=== PATIENT | female | born 1960 | race Caucasian/White ===

== ENCOUNTER 2016-09-03 04:52 | Inpatient (IN) | payer BC ==
[~2016-09-03] VITALS: Ht 160 cm; Wt 91.1 kg
--- NOTE | ~2016-09-03 | ER ---
[facility] AGE: 55 Y [address] ROOM: [place] [address] LOCATION: ED ADMIT DATE: 09/03/2016 ER/Outpatient Report DISCHARGE DATE: FAMILY PHYSICIAN: Hesham Aguirre MD ATTENDING PHYSICIAN: Michael Vega Time of Arrival: Admission date and time documented on the medical record. Time of Evaluation: I saw the patient at 0505 hours. CHIEF COMPLAINT: Left arm pain with cyanosis of the fingertips of the left hand. HISTORY OF PRESENT ILLNESS: The patient is a 55-year-old female, who has had left arm pain since about 1800 hours last night, worse with movement. Her pain is about mid left upper arm down to the fingertips. She was sitting and eating supper when this started. She had no fall or trauma. She has had no previous similar pain or problems with this left arm. No recent cough, colds, flus, fever, chills, or sweats. No history of any vascular problems other than a deep vein thrombosis in her leg about 10 or 11 years ago. She is on no anticoagulants. There is no history of hypercoagulable state. No lightheadedness, dizziness, syncope or near syncope. No headache or eyes, ears, nose, throat, neck, or spine pain. No chest pain or shortness of breath. No abdominal pain, nausea, vomiting, diarrhea, or urinary complaints. No history of neuro changes or psych issues. Does have insulin-dependent diabetes mellitus. HOME MEDICATIONS: See attached medication list. ALLERGIES: NONE. SOCIAL HISTORY: The patient is a smoker, smokes about a pack a week. Does drink alcohol 1 drink daily. SIGNIFICANT PAST MEDICAL HISTORY: Tobacco abuse; insulin-dependent diabetes mellitus, type 2; hypertension; deep vein thrombosis, leg; and cellulitis, leg. OPERATIONS: Knee arthroscopy. REVIEW OF SYSTEMS: All systems reviewed by me are negative with the exception of those discussed PATIENT'S NAME: JIMBO JOHN [facility] AGE: 55 Y [address] ROOM: [place] [address] LOCATION: ED ADMIT DATE: 09/03/2016 ER/Outpatient Report DISCHARGE DATE: FAMILY PHYSICIAN: Hesham Aguirre MD ATTENDING PHYSICIAN: Michael Vega in the history of present illness. PHYSICAL EXAMINATION: VITAL SIGNS: Temperature 96.9, tympanic; pulse 70; blood pressure 224/94; and O2 saturation on room air is 95%. HEAD: Normocephalic. EYES, EARS, NOSE, AND THROAT: Clear. NECK: No nuchal rigidity. No thyromegaly or cervical adenopathy. No carotid bruits. LUNGS: Clear. Good air flow. No rales, rhonchi, or wheezes. HEART: Regular. Pulses palpable. ABDOMEN: Soft, nondistended, nontender. Good bowel tones. No organomegaly or abnormal mass palpable. EXTREMITIES: No swelling of the left arm, upper-lower arm and fingers. She has some cyanosis and duskiness to the fingers, especially the 3rd, 4th, and 5th fingers. Capillary refill is a little bit delayed in the fingers compared to the right hand. She has tenderness with touch and tenderness with movement. She has pulses in the fingers as well as the wrist and antecubital fossa. The radial pulse is not quite as strong in the left as in the right arm. No abrasions, contusions, swellings, or open wounds. NEUROVASCULAR: Appears to be intact. She has no sensory deficit. Does have a little bit of pins and needles feeling in her left hand. EMERGENCY DEPARTMENT COURSE: Did order CBC, CMS, sedimentation rate, CRP, lactate, pro-time, and PTT. All blood study results are pending at this time. Did order a CTA of the left arm, which is pending. Started the patient on IV normal saline, fluids. Gave her fentanyl for pain. IMPRESSION: Left arm pain with duskiness of the fingers, decreased capillary refill, etiology uncertain. Suspect that she has some type of vascular problem, most likely arterial. She may have thrown a clot. I did discuss this patient with Dr. Cash, vascular surgeon. He did recommend a CTA of the left arm. Awaiting results on this. Transferred the patient's care over to Dr. Hendricks at shift change. I asked Dr. Hendricks to follow up with the laboratory and x-ray study results, final diagnosis, and treatment plan. MD ANGELO MENDEZ/modl PATIENT'S NAME: JIMBO [facility] AGE: 55 Y [address] ROOM: [place] [address] LOCATION: [facility] ADMIT DATE: 09/03/2016 ER/Outpatient Report DISCHARGE DATE: FAMILY PHYSICIAN: Hesham Aguirre MD ATTENDING PHYSICIAN: Michael Vega /[id number] d: 09/03/16629 t: 09/03/16 1813, OUTPATIENT REPORT
--- NOTE | ~2016-09-03 | HP ---
PATIENT'S NAME: EDILIA JOHN [facility] AGE: 55 Y [address] ROOM: [id number] [place], [place] [address] LOCATION: GPCU ADMIT DATE: 09/03/2016 History & Physical DISCHARGE DATE: FAMILY PHYSICIAN: JOE DANIEL MD ATTENDING PHYSICIAN: JOE DANIEL DATE OF SERVICE: CHIEF COMPLAINT: Pain, palmar side, left 5th finger, distal aspect. HISTORY OF PRESENT ILLNESS: Edilia is a 55-year-old, , white female, well known to me in the outpatient arena, who presented to the emergency room with pain in her left 5th finger on the palmar side at the distal aspect of the finger. I was called by the emergency room physician to be the admitting physician so we can get her admitted and figure out what is wrong with her hand. I have asked for cardiac consultation with Dr. Roddy Burden and Dr. Celso Cash who will see her as a vascular surgeon. When I saw her at 1:00 p.m., she is resting quietly in bed on 09/03/2016. She has a purple color and hue to the palmar surface of the tip of her left 5th finger. She has a strong radial and ulnar pulses in the arm that is affected. This area has been demarcated by the nurses with a pen. When I looked at her, she is resting quietly complaining of pain in her finger but no other aches and pains. No chest pain. No palpitations. No shortness of breath. She is known to have hypertension, known to be a smoker, known to have a history of MRSA with infection of her leg in the past, and known to be a type 2 diabetic, on insulin. At this point, we will leave her on heparin. Dr. Burden has seen the patient and an echocardiogram has been ordered for tomorrow and Dr. Cash's PA has seen the patient, and Dr. Cash will see the patient tomorrow and give his recommendations. I see her A1c is 9.8, her blood sugar of 196 random, her potassium is 3.3, otherwise her lab and CBC unremarkable. Her CTA of the involved upper extremity shows no proximal vessel stenosis. See full report. MEDICATIONS: 1. Metformin 500 mg b.i.d. 2. [place] 5/325 as needed. 3. Lisinopril HCT 01/04.5, one daily. 4. Insulin Humalog sliding scale. 5. Insulin Tresiba 50 units daily. [facility] 55 Y [address] ROOM: [place] [address] LOCATION: GPCU ADMIT DATE: 09/03/2016 History & Physical DISCHARGE DATE: FAMILY PHYSICIAN: JOE DANIEL MD ATTENDING PHYSICIAN: JOE DANIEL ALLERGIES: NO KNOWN DRUG ALLERGIES. SOCIAL HISTORY: Does smoke. FAMILY HISTORY: Noncontributory. IMMUNIZATIONS: Up to date for age. REVIEW OF SYSTEMS: HEENT: She has had no change in vision. No hearing problems. No sore throat. ENDOCRINE: She is a type 2 diabetic. Not hypothyroid. LUNGS: History of COPD and smoking detention. HEART: History of hypertension. No previous GA. No history of atrial fibrillation. GASTROINTESTINAL: No recent change in bowel habits. No melena. No dysphagia. GENITOURINARY: No dysuria or frequency. EXTREMITIES: As mentioned. No history of Raynaud's phenomenon in the past. SKIN: As mentioned. She does have a history of MRSA infection in left leg about a year ago that resolved. NEUROLOGIC: No history of seizures, syncope, or stroke. PHYSICAL EXAMINATION: VITAL SIGNS: Per nurse's notes. Blood pressure is 186/90, pulse is 80 and regular, respirations 12. HEENT: Shows a smoker's facies. Her eyes are clear. Nose is clear. TMs not visualized. Posterior pharynx is clear. Mucous membranes are moist. NECK: Unremarkable. Thyroid not enlarged. No adenopathy. I did not listen for carotid bruit. HEART: Shows regular rhythm. No murmur. BREASTS: Not done. LUNGS: Clear to auscultation bilaterally. ABDOMEN: Soft. PELVIC, RECTAL, and BREASTS: Not done. EXTREMITIES: As mentioned on her right hand. NEUROLOGIC: Grossly intact. Cranial nerves intact. MENTAL STATUS: Normal. ASSESSMENT: PATIENT'S NAME: DORA [facility] AGE: 55 Y [address] ROOM: [place] [address] LOCATION: GPCU ADMIT DATE: 09/03/2016 History & Physical DISCHARGE DATE: FAMILY PHYSICIAN: JOE DANIEL MD ATTENDING PHYSICIAN: JOE DANIEL 1. Purple discoloration and pain, left 5th finger. 2. Hypertension, essential. 3. Diabetes mellitus type 2, treated with insulin. PLAN: As above. MD WILBERT NESBITT/modl /[id number] D: 935 T: HISTORY & PHYSICAL
--- NOTE | ~2016-09-03 | ECHO ---
Transthoracic Echocardiography Report (TTE) Demographics Patient Name JIMBO JOHN Date of Study 09/04/2016 Patient Number [id number] Visit Number [id number] Date of 1960 Room Number G6323 Accession Number [id number] Gender Female Age 55 year(s) Referring Bertram Pereyra MD Barrel Painter Isabel Singleton RVT Physician Timothy Faulkner MD Physician Interpreting Bertram Pereyra MD Floor Covering Layer Physician Supervising Ordering Physician Bertram Pereyra MD, MD/P Nurse Stress Web Site Project Manager Conclusions Contractility Score Summary Normal Left Ventricular contractility was noted. Summary The estimated left ventricular ejection fraction is 60-65%. Mild concentric left ventricular hypertrophy. Diastolic assessment reveals Grade II pseudonormal diastolic function . Mild mitral annular calcification. Trivial mitral regurgitation by color Doppler. The aortic valve was not well imaged. The pulmonic valve is not well visualized. Procedure Type of Study TTE procedure:2D Echocardiogram. Procedure Date Date: 09/04/2016 Start: 07:47 AM Indications:Left Arm Pain. Additional Indications:arterial compromise rule out possible embolus Appropriate Use Criteria: 9 Patient Status: Routine HR: 58 bpm BP: 115/63 mmHg M-Mode/2D Measurements LV Diastolic Dimension: 3.97 cm LV Systolic Dimension: 2.54 cm LV Septum Diastolic: 1.5 cm LV PW Diastolic: 1.3 cm AO Root Dimension: 2.3 cm Cardiac Output: 3.42 l/min AV Cusp Separation: 1.7 cm RV Diastolic Dimension: 2.17 cm LA volume: 53 ml LVOT: 1.9 cm RV Base: 2.15 cm LVOT VTI: 20.8 cm RV Mid: 2.11 cm LV Stroke volume: 58.94 ml TAPSE: 2.11 cm TDI-S': 11.3 cm/s Doppler Measurements AV Peak Velocity: 1.66 m/s MV Peak E-Wave: 1.01 m/s AV Peak Gradient: 11.02 mmHg MV Peak A-Wave: 0.98 m/s AV Mean Gradient: 6 mmHg MV E/A Ratio: 1.03 LVOT Peak Velocity: 0.87 m/s MV P1/2t: 72 msec PV Peak Velocity: 0.95 m/s E' Septal Velocity: 0.08 m/s PV Peak Gradient: 3.59 mmHg E' Lateral Velocity: 0.08 m/s A' Septal Velocity: 0.05 m/s A' Lateral Velocity: 0.11 m/s Findings Left Ventricle Mild concentric left ventricular hypertrophy. Diastolic assessment reveals Grade II pseudonormal diastolic function . Right Ventricle Normal right ventricle structure and function. Left Atrium Normal left atrial size. Right Atrium IVC measures 1.68 cm with inspiratory collapse. Mitral Valve Mild mitral annular calcification. Trivial mitral regurgitation by color Doppler. Aortic Valve The aortic valve was not well imaged. Tricuspid Valve Normal tricuspid valve structure and function. Pulmonic Valve The pulmonic valve is not well visualized. Pericardial Effusion No evidence of pericardial effusion. Miscellaneous Visualized portions of the aortic root and ascending aorta appear normal in size. Pleural Effusion No evidence of pleural effusion. Contractility Score LV regional wall motion:(0-Non visualized 1-Normal 2-Hypokinesis 3-Akinesis 4-Dyskinesis 5-Aneurysm) Signature dtt: Roddy Burden (cardio) dtd: 09/04/16 0747 Physician Self Edit
--- NOTE | ~2016-09-03 | ENPV ---
Vascular Upper Extremities Veins Procedure Demographics Patient Name JIMBO JOHN Date of Study 09/03/2016 Patient Number [id number] Gender Female Date of 1960 Age 55 Visit Number [id number] Height 63 Accession Number [id number] Weight 198 Referring Timothy Houston MD Physician Eladio Lackey MD Physician Physician Ordering Physician Eladio Lackey MD Brim Stretcher Telephone Services Sales Representative Karyna Natalio RDCS, RVT Lidiajanet Spain RVT, RDCS Conclusions Summary No evidence of thrombophlebities is noted in the deep or superficial veins of the imaged upper extremity(ies). Procedure Type of Study: Veins:Upper Extremities Veins, Upper Extremity Left. Indications for Study:Arm pain. Additional Indications:discoleration Appropriate Use Criteria:5 Patient Status:STAT. Study Location:ER. Technical Quality:Adequate visualization. Velocities are measured in cm/s ; Diameters are measured in cm Right UE Vein Measurements 2D and Doppler Measurements + + + + +--------+ + !Location !Visualized !Compressibility !Thrombosis !Signal !Reflux ! + + + + +--------+ + !IJV !Yes !Yes !None !Phasic ! ! + + + + +--------+ + !SCV !Yes !Yes !None !Phasic ! ! + + + + +--------+ + Left UE Vein Measurements 2D and Doppler Measurements + + + + +--------+--------+ !Location !Visualized !Compressibility !Thrombosis !Signal !Reflux ! + + + + +--------+--------+ !IJV !Yes !Yes !None !Phasic !No ! + + + + +--------+--------+ !SCV !Yes !Yes !None !Phasic !No ! + + + + +--------+--------+ !Innominate !Yes !Yes !None !Phasic !No ! + + + + +--------+--------+ !Axillary !Yes !No !None !Phasic !No ! + + + + +--------+--------+ !Brachial !Yes !Yes !None !Phasic !No ! + + + + +--------+--------+ !Radial !Yes !Yes !None !Phasic !No ! + + + + +--------+--------+ !Ulnar !Yes !Yes !None !Phasic !No ! + + + + +--------+--------+ !Basilic !Yes !Yes !None !Phasic !No ! + + + + +--------+--------+ !Cephalic !Yes !Yes !None !Phasic !No ! + + + + +--------+--------+ Impressions Right Impression Right subclavian appears normal on comparison. Left Impression no DVT seen Signature dtt: KIM BYRNE dtd: 09/03/16 0615 Physician Self Edit
--- NOTE | ~2016-09-03 | CON ---
PATIENT'S NAME: DORA [facility] AGE: 55 Y [address] ROOM: [place] [address] LOCATION: GPCU ADMIT DATE: 09/03/2016 Consultation DISCHARGE DATE: 09/06/2016 FAMILY PHYSICIAN: Hesham Aguirre MD ATTENDING PHYSICIAN: Hesham Aguirre DATE OF CONSULTATION: 09/04/2016 REFERRING PHYSICIAN: Celso Cash MD REASON FOR CONSULTATION: Atrial fibrillation. HISTORY OF PRESENT ILLNESS: This is a 55-year-old female, who was admitted with left arm pain, to mid-to- lower arm, fingertip discoloration. She states that she was sitting at the dinner table and just got done eating when she noticed that her little finger and 3 of her other fingers started to turn purple and were painful. She then noticed that she started having tingling and pain in the forearm and therefore she presented to the emergency room for further evaluation. She does have a history of a DVT with bilateral pulmonary embolus approximately 10 years ago and had been on long-term anticoagulation prior to that for over a year. During that episode, she had been living in [place] and went to the [facility]. Prior to this episode of her fingers turning dusky, she had been out fishing in [facility] [place] [facility] [place]. She walked up and down hills there and it was very hot out. She was very short of breath and reported that she drank "some water." She denied any chest pain with any of this. She denies shortness of breath prior to being out in the heat. No orthopnea, PND, or increased peripheral edema. She denies palpitations, lightheadedness, or dizziness. PAST MEDICAL HISTORY: 1. Diabetes mellitus. 2. Essential hypertension. 3. DVT of the leg with bilateral pulmonary emboli. 4. History of leg cellulitis. PAST SURGICAL HISTORY: She has had a scope of her right knee, fractured right knee with a meniscal tear. ALLERGIES: NONE TO MEDICATION. CURRENT HOME MEDICATIONS: 1. Metformin 500 mg b.i.d. 2. [place] 5/325 mg p.r.n. PATIENT'S NAME: DORA [facility] AGE: 55 Y [address] ROOM: [place] [id number] LOCATION: GPCU ADMIT DATE: 09/03/2016 Consultation DISCHARGE DATE: 09/06/2016 FAMILY PHYSICIAN: Hesham Aguirre MD ATTENDING PHYSICIAN: Hesham Aguirre 3. Lisinopril/hydrochlorothiazide 10/12.5 mg daily. 4. Insulin Humalog, sliding scale. 5. Insulin Tresiba 50 units every day. SOCIAL HISTORY: She is . She smokes about a pack of cigarettes a week. Ten years ago, she was smoking about 1 to 2 packs of cigarettes a day and smoked that much for 20 years. FAMILY HISTORY: Mother of lung cancer. She had a brother, who is a heavy smoker, he had a CVA at the age of 56. REVIEW OF SYSTEMS: HEAD: She denies complaints of headache. EYES: No blurred vision or double vision. She wears corrective lenses. EARS: No problems with hearing. THROAT: She denies difficulty with swallowing. No complaints of sore throat. PULMONARY: She has a history of COPD and smoking long-term. She has productive cough. CV: As per HPI. GI: Negative for nausea, vomiting, or diarrhea. No melena or hematochezia. : Negative for urinary frequency or urgency. No dysuria or polyuria. ENDOCRINE: She is type 2 diabetic. She is not hypothyroid. SKIN: As per HPI. She does have a history of MRSA infection in her left leg that was resolved a year ago. NEUROLOGIC: No history of seizures or syncope. No TIA or CVA symptomatology. PHYSICAL EXAMINATION: VITAL SIGNS: She is 5 feet and 3 inches tall, she weighs 198 pounds, blood pressures are 120/61 to 130/60, heart rate is 70, and saturations are 95%. GENERAL: She is alert, oriented, answers questions appropriately. HEENT: Her pupils were equal. They did react briskly. NECK: Soft and supple. There is no lymphadenopathy. No thyromegaly. JVD is flat. LUNGS: Lung sounds were clear, but diminished throughout. CV: Regular rate and rhythm. She did have a short run of what looked like aberrant atrial fibrillation. ABDOMEN: Soft. Bowel sounds are present. EXTREMITIES: Her left hand fingers are little more warm. She still has some duskiness noted in the left finger. She states that the tingling and discomfort are better now, but she is on heparin. Extremities showed no peripheral edema. No clubbing. No cyanosis. Distal pulses are 2+/4. NEUROLOGIC: No TIA or CVA symptoms. PSYCHIATRIC: Her affect is normal. She is pleasant. PATIENT'S NAME: EDILIA CASEY [facility] AGE: 55 Y [address] ROOM: [place] [address] LOCATION: GPCU ADMIT DATE: 09/03/2016 Consultation DISCHARGE DATE: 09/06/2016 FAMILY PHYSICIAN: Hesham Aguirre MD ATTENDING PHYSICIAN: Hesham Aguirre LABORATORY DATA: Hemoglobin A1c was reported at 9.8. ESR was 6. CTA did not show any occlusive disease. ASSESSMENT: 1. Ischemic left hand digits. The color has improved with the heparin. She is currently on lisinopril and hydrochlorothiazide. We might consider using calcium channel blockers and continue heparin. We will check an echocardiogram for further evaluation. 2. History of pulmonary embolism, this is stable. 3. Questionable PAF. We will check her TSH and further recommendations will be forthcoming. The assessment and plan, history of present illness, and physical exam are per Dr. Galdamez. We would like to thank Dr. Hesham Aguirre for allowing us to participate in the care of Edilia Casey. ELIANA LOPEZ APRN FOR HITESH GALDAMEZ MD TGP/modl /[id number] d: 09/07/16 2225 t: 09/13/16 0814, CONSULTATION REPORT
--- NOTE | ~2016-09-03 | OR ---
PATIENT'S NAME: [facility]A [facility] AGE: 55 Y [address] ROOM: [address] [address] [facility] AD[facility] DATE: 09/03/2016 OR/Procedure Report DISCHARGE DATE: FAMILY PHYSICIAN: JOE DANIEL MD ATTENDING PHYSICIAN: JOE DANIEL SURGEON: Celso Cash MD WOOL HAT FINISHER: DATE OF PROCEDURE: 09/05/2016 PREOPERATIVE DIAGNOSIS: Ischemic left hand. POSTOPERATIVE DIAGNOSIS: Thromboangiitis obliterans. MAJOR LEAGUE BASEBALL PLAYER: DEMI Goodson ANESTHESIA: General. ESTIMATED FLUID LOSS: 10 mL. 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 DESCRIPTION OF PROCEDURE: The patient was brought to the operating room, placed under general anesthesia. Prepped and draped in a sterile manner. Preoperative time-out was performed. The patient received preoperative antibiotics. We made a standard cutdown to the brachial artery using a transverse incision in the antecubital space, dissected down the fascia, incised the fascia in a longitudinal manner. Dissected out a segment of brachial artery. We then gave 2000 units of heparin. We then accessed the artery using a micropuncture needle, followed by micropuncture wire, followed by a micropuncture sheath. We performed a series of angiograms of the left upper extremity which showed that she had reasonably sized vessels proximally, but as you go more distally towards the hand, they become more heavily diseased and the vessels in the hand were actually very significantly diseased, and severe multi-level disease of the hands. There was no evidence of any clot formation. We removed the sheath. We then repaired the hole with a single 6-0 Prolene. Heparin was not reversed. Thrombin was used locally on the wound. Deep layers were closed with 2-0 and 3-0 Vicryl. Skin was closed with running 4-0 Monocryl. The patient will be started on Plavix and transferred back to the floor. Discharge possible tomorrow. CELSO CASH MD PATIENT'S NAME: DORA [facility] AGE: 55 Y [address] ROOM: [place] [address] [facility] AD[facility] DATE: 09/03/2016 OR/Procedure Report DISCHARGE DATE: FAMILY PHYSICIAN: JOE DANIEL MD ATTENDING PHYSICIAN: JOE DANIEL FKM/modl /[id number] d: 09/05/16 2143 t: 09/08/16 1014, OPERATIVE SUMMARY
--- NOTE | ~2016-09-03 | DS ---
PATIENT'S NAME: JIMBO JOHN [facility] AGE: 55 Y [address] ROOM: [id number] [place], [place] [address] LOCATION: GPCU ADMIT DATE: 09/03/2016 Discharge Summary DISCHARGE DATE: 09/06/2016 FAMILY PHYSICIAN: Hesham Aguirre MD ATTENDING PHYSICIAN: Hesham Aguirre FINAL DIAGNOSES: 1. 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 2. Chronic tobacco abuse. 3. Diabetes mellitus, type 2, treated with insulin with hyperglycemia. 4. Known hypertension and coronary artery disease, stable angina pectoris. HOSPITAL COURSE: The patient was admitted to the hospital with pain in her 4th and 5th finger of the left hand. She was seen in the ER, placed on heparin there, and I refer you to my history and physical. Dr. Celso Cash, vascular surgeon, was consulted to take a look at her left arm and Dr. Roddy Burden, the hvac sheet metal installer helper, was asked to see the patient in case she needed a trip to the operating room. I refer you to Dr. Burden's notes and his dictation in regard to her cardiac evaluation including echocardiogram, and I refer you to notes and dictations of Dr. Cash including his operative note. I discussed things with Dr. 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 The patient's evaluation here showed hyperglycemia. Her BUN, creatinine, and liver functions looked fine. Her cardiac workup showed no evidence of acute GA or significant arrhythmia or atrial fibrillation. The patient was felt to have reached maximal hospital benefit on 09/06/2016. She was dismissed to home with the care of her . She goes on a diabetic diet as tolerated. Activity as tolerated with followup instructions to see me in the office in 1 week. She was on the med list shown including Plavix 75 mg a day. She has been given instructions to stop smoking. If she has increasing pain or fever, she is to be seen back earlier; otherwise, I will see her in the office in 1 week. MD WILBERT NESBITT/anastasial PATIENT'S NAME: JIMBO JOHN [facility] AGE: 55 Y [address] ROOM: [place] [address] [facility] ADMIT DATE: 09/03/2016 Discharge Summary DISCHARGE DATE: 09/06/2016 FAMILY PHYSICIAN: Hesham Aguirre MD ATTENDING PHYSICIAN: Hesham Aguirre /[id number] d: 09/07/16 0158 t: 09/09/16 1207, DISCHARGE SUMMARY
--- NOTE | ~2016-09-03 | ER ---
PATIENT'S NAME: JIMBO CASEY [facility] AGE: 56 Y [address] ROOM: [address] [place], [place] [address] [facility] AD[facility] DATE: 09/03/2016 ER/Outpatient Report DISCHARGE DATE: 09/06/2016 FAMILY PHYSICIAN: Hesham Aguirre MD ATTENDING PHYSICIAN: Hehsam Aguirre IDENTIFICATION: Ms. Casey is a 55-year-old female. ADDENDUM: I received care of this individual at [address] Vega. The patient had pending DVT ultrasounds and a CTA of the left upper extremity pending. The final reports were concerning for luminal narrowing based on those initial reads. At that time, I discussed the case with Dr. Cash via phone. The patient was started on heparin, and will be admitted to the Dr. Aguirre' Service. Pain remained relatively well controlled. The patient had no further issues at this time. She is admitted without further issues for further evaluation and treatment of this left upper extremity vascular phenomenon, which is unclear in etiology and may in fact be Raynaud syndrome. However, the exact etiology is unclear at this time, and for safety purposes, we will admit her. MD CORIE GOMES/anastasial /[id number] d: 09/18/16 0759 t: 10/09/16 1653, OUTPATIENT REPORT
--- NOTE | ~2016-09-03 | CON ---
PATIENT'S NAME: JIMBO JOHN [facility] AGE: 55 Y [address] ROOM: [address] [address] LOCATION: GPCU ADMIT DATE: 09/03/2016 Consultation DISCHARGE DATE: FAMILY PHYSICIAN: JOE DANIEL MD ATTENDING PHYSICIAN: JOE DANIEL DATE OF CONSULTATION: 09/03/2016 REFERRING PHYSICIAN: KIM CASH MD CONSULTATION NOTE REASON FOR CONSULTATION: Discolored left upper extremity fingertips and cool extremity. HISTORY OF PRESENTING ILLNESS: This is a 55-year-old female, currently in the Emergency Room at [facility]. On 09/02/2016, shortly after eating dinner, she experienced an onset of pain in the left upper extremity from her mid arm to the fingertips. She presented to the ER this morning with bluish purple discoloration to her left 5th digit, increased tenderness to her fingertips, and numbness and tingling. She denies any trauma to her arm. She denies any falls. Denies any history of arterial disease. She does have a significant history for deep vein thrombosis in her lower extremities 10 years ago with pulmonary embolism. She was placed on Coumadin at that time. No current home anticoagulation. She is on a heparin drip during the interview. The patient reports that after developing deep vein thrombosis, she cut back on her smoking to a pack per week to months. She does, however, have a 20-year smoking history of 1 to 2 packs per day. The patient is also a type 2 diabetic. Her hemoglobin A1c today is 9.8. The patient denies any personal or family history of coagulation disorders. She denies any palpitations, chest pain, shortness of breath, or dizziness. She denies any fevers or chills. She denies any nausea, vomiting, abdominal pain, diarrhea, or constipation. She denies any lower extremity claudication. Denies any swelling. PAST MEDICAL HISTORY: 1. Deep vein thrombosis with pulmonary embolism. 2. Hypertension. 3. Diabetes mellitus, type 2. 4. Leg cellulitis. PAST SURGICAL HISTORY: Right knee scope for meniscal tear. FAMILY HISTORY: PATIENT'S NAME: DORA JOHNS [facility] AGE: 55 Y [address] ROOM: [id number] [place], [place] [address] [facility] AD[facility] DATE: 09/03/2016 Consultation DISCHARGE DATE: FAMILY PHYSICIAN: JOE DANIEL MD ATTENDING PHYSICIAN: JOE DANIEL Mother of lung cancer. Brother with stroke, and father was a smoker. SOCIAL HISTORY: The patient drinks two drinks a day one day a week. She has been smoking one pack per week to months for the last 10 years. Prior to that, she has a 20 year history of 1 to 2 packs per day. Denies any recreational or illicit drug use. CURRENT MEDICATIONS: See medication reconciliation. ALLERGIES: NO KNOWN DRUG ALLERGIES. REVIEW OF SYSTEMS: A 10-point review of systems completed, positives addressed in the History of Presenting Illness. PHYSICAL EXAMINATION: VITAL SIGNS: Heart rate 70, respiratory rate 16, temperature 96.9, blood pressure 224/94, and oxygen saturation 95% on room air. GENERAL: She is alert and oriented x3, in no acute distress. SKIN: Warm, pink, and dry with no rashes. No ulcers. HEENT: Head; normocephalic and atraumatic. Ears without drainage. Eyes; sclerae white. Conjunctivae pink. Extraocular movements intact. PERRLA. Nose without drainage. Throat; oral mucosa pink and moist. Negative erythema. NECK: Without adenopathy. No evidence of JVD. Trachea midline. RESPIRATORY: Clear to auscultation bilaterally. Even and nonlabored. CARDIOVASCULAR: Regular rate and rhythm. No murmur or extra sounds. GASTROINTESTINAL: Bowel sounds active x4. Soft and nontender. No organomegaly. EXTREMITIES: Bilateral dorsalis pedis, posterior tibialis brachial, radial, and ulnar pulses 2+. I was able to quickly find digits 1 through 4 pulses on Doppler. I had a more difficult time finding 5th digit pulse on Doppler. All fingers are tender on palpation with pins and needles feeling. There is purple discoloration to left 5th digit. No edema. Extremities feel warm to touch. She has active range of motion throughout. NEUROLOGICAL: Strength equal 5/5. Moves all extremities. No focal deficits. DIAGNOSTIC DATA: CTA; no definite thrombosis, gradual narrowing of the arteries. Upper extremity venous duplex, negative for deep vein thrombosis. Laboratories: Chemistry; sodium 142, potassium 3.3, chloride 106, CO2 of 28, PATIENT'S NAME: JIMBO JOHN [facility] AGE: 55 Y [address] ROOM: [id number] [place], [place] [address] LOCATION: GPCU ADMIT DATE: 09/03/2016 Consultation DISCHARGE DATE: FAMILY PHYSICIAN: JOE DANIEL MD ATTENDING PHYSICIAN: JOE DANIEL BUN 20, creatinine 0.7, and glucose 95. Hematology; white blood cell count 10.3, hemoglobin 5.81, hematocrit 15.7, and platelets 277,000. IMPRESSION AND PLAN: Compromised arterial flow. Raynaud versus Buerger's disease. Difficult to tell if the change in circulation is related to vasospasm or progressive inflammation of arteries versus embolus. Currently, the patient appears to have flow to hand as evident by palpable and Doppler pulses throughout. Due to the possibility of embolus to distal vessels, I recommend continuing heparin IV. Dr. Cash is currently in the [facility] and he will be in to assess the patient tomorrow, 09/04/2016. The patient will likely need a formal angiogram of left upper extremity to look for evidence of stenosis or embolism. Creatinine currently is 0.7. Continue to monitor . Continue to educate the patient on the importance of smoking cessation for vascular health. Thank you for your consultation and for allowing us to participate in the care of this patient. SANTO CRUZ APRN FOR KIM CASH MD TO/anastasial /[id number] d: 09/03/16 230 t: 09/11/16 1743, CONSULTATION REPORT
[2016-09-03 05:46] LABS: BASOPHIL # 0.1 K/uL (0.0-0.2); BASOPHIL % 0.9 %; EOSINOPHIL # 0.5 K/uL (0.0-0.5); EOSINOPHIL % 4.4 %; HEMATOCRIT 47.2 % (33.0-46.0); HEMOGLOBIN 15.7 g/dL (10.0-15.0); IMMATURE GRANULOCYTE % 0.4 %; LYMPHOCYTE # 4.8 K/uL (0.8-4.0); LYMPHOCYTE % 46.5 %; MCH 29.6 pg (27.0-34.0); MCHC 33.3 gm/dL (32.0-36.5); MCV 88.9 fl (83.0-98.0); MONOCYTE # 0.9 K/uL (0.0-1.0); MONOCYTE % 8.9 %; NEUTROPHIL % 38.9 %; NRBC % 0 /100WBC (0-0.00); PLATELET COUNT 277 K/uL (150-450); RBC 5.31 M/uL (3.50-5.50); RDW-CV 13.4 % (11.9-14.6); WBC 10.3 K/uL (4.0-11.0)
[2016-09-03 06:29] LABS: INR - (THERAPEUTIC) 1.02 (0.92-1.07); PROTIME 10.7 SECONDS (9.8-11.4); PTT 24 SECONDS (25-32)
[2016-09-03 06:35] LABS: ALBUMIN 3.4 gm/dL (3.5-5.0); ALK PHOS 105 IU/L (33-138); ALT 22 IU/L (12-78); ANION GAP 11.3 (10.0-19.0); AST 10 IU/L (10-40); BLOOD UREA NITROGEN 20 mg/dL (6-24); CALCIUM 8.3 mg/dL (8.5-10.5); CHLORIDE 106 mMol/L (96-110); CO2 28 mMol/L (22-32); CREATININE 0.7 mg/dL (0.5-1.1); ESTIMATED GFR (MDRD EQUATION) > 60; POTASSIUM 3.3 mMol/L (3.7-5.1); SODIUM 142 mMol/L (135-145); TOTAL BILIRUBIN 0.4 mg/dL (0.0-1.5); TOTAL PROTEIN 6.7 g/dL (6.0-8.4)
[2016-09-03] MEDS ORDERED: GLUCOPHAGE500 MG PO (10:28)
[2016-09-03] MEDS ORDERED: NORCO 5-325 TA1 EACH PO (10:30)
[2016-09-03] MEDS ORDERED: ZESTORETIC 10-1 EACH PO (10:33)
[2016-09-03] MEDS ORDERED: NOVOLOG FL100 UNIT/1 SUB-Q (10:33)
[2016-09-03] MEDS ORDERED: TRESIBA FL100 UNIT/1 SUB-Q (10:34)
[2016-09-04 04:55] LABS: ANION GAP 13.2 (10.0-19.0); BLOOD UREA NITROGEN 17 mg/dL (6-24); CHLORIDE 105 mMol/L (96-110); CO2 25 mMol/L (22-32); CREATININE 0.7 mg/dL (0.5-1.1); ESTIMATED GFR (MDRD EQUATION) > 60; PHOSPHORUS 3.3 mg/dL (2.5-4.9); POTASSIUM 4.2 mMol/L (3.7-5.1); SODIUM 139 mMol/L (135-145)
[2016-09-04] MEDS ORDERED: DELTASONE20 MG PO (11:00)
[2016-09-06 05:49] LABS: BASOPHIL # 0.1 K/uL (0.0-0.2); EOSINOPHIL # 0.3 K/uL (0.0-0.5); EOSINOPHIL % 4.1 %; HEMATOCRIT 45.2 % (33.0-46.0); HEMOGLOBIN 14.4 g/dL (10.0-15.0); IMMATURE GRANULOCYTE % 0.4 %; LYMPHOCYTE # 2.8 K/uL (0.8-4.0); LYMPHOCYTE % 38.1 %; MCH 29.7 pg (27.0-34.0); MCHC 31.9 gm/dL (32.0-36.5); MCV 93.2 fl (83.0-98.0); MONOCYTE # 0.6 K/uL (0.0-1.0); MONOCYTE % 7.9 %; MPV 10.9 fl (9.4-12.4); NEUTROPHIL # (ANC) 3.5 K/uL (1.8-7.8); NEUTROPHIL % 48.5 %; NRBC % 0.3 /100WBC (0-0.00); PLATELET COUNT 225 K/uL (150-450); RBC 4.85 M/uL (3.50-5.50); RDW-CV 13.1 % (11.9-14.6); WBC 7.3 K/uL (4.0-11.0)
[2016-09-06 06:00] LABS: ANION GAP 10.3 (10.0-19.0); BLOOD UREA NITROGEN 9 mg/dL (6-24); CALCIUM 8.4 mg/dL (8.5-10.5); CHLORIDE 107 mMol/L (96-110); CO2 24 mMol/L (22-32); CREATININE 0.6 mg/dL (0.5-1.1); ESTIMATED GFR (MDRD EQUATION) > 60; POTASSIUM 4.3 mMol/L (3.7-5.1); SODIUM 137 mMol/L (135-145)
[2016-09-06] MEDS ORDERED: PLAVIX75 MG PO (12:15)
[2016-09-06] MEDS ORDERED: NORVASC5 MG PO (12:15)
== END 2016-09-06 22:20 | disposition disaster alternative care site (69) | DRG 301 ==
LOC: GMED 04:52 → GPCU 08:58
PROVIDERS: Emergency Medicine; Surgery Vascular Surgery; ADMIT Family Medicine
PROC: B34JZZZ Ultrasonography of Left Upper Extremity Arteries (ICD-10-PCS; principal; 2016-09-05)
PROC: 3E013GC Introduction of Other Therapeutic Substance into Subcutaneous Tissue, Percutaneous Approach (ICD-10-PCS; principal; 2016-09-05)
PROC: 05H Upper Veins, Insertion (ICD-10-PCS; principal; 2016-09-05)
DX: I73.1 Thromboangiitis obliterans [Buerger's disease] (principal); E11.65 Type 2 diabetes mellitus with hyperglycemia; I10 Essential (primary) hypertension; I99.8 Other disorder of circulatory system; F17.210 Nicotine dependence, cigarettes, uncomplicated; I48.0 Paroxysmal atrial fibrillation; E78.5 Hyperlipidemia, unspecified; I25.118 Atherosclerotic heart disease of native coronary artery with other forms of angina pectoris; Z86.711 Personal history of pulmonary embolism; Z86.718 Personal history of other venous thrombosis and embolism; Z79.4 Long term (current) use of insulin
CPT/HCPCS: J0690; J1644; J2720; J7030